=== PATIENT | female | born 1970 | race Caucasian/White ===

== ENCOUNTER 2020-12-27 08:00 | Outpatient (RCR) | payer MEDICARE, MEDICAID, SELFPAY ==
[2020-12-12 13:36] VITALS: BMI 20.9
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
--- NOTE | 2020-12-13 11:03 | PC.ADMIT ---
Patient self referred to PHP d/t increase in mood dysregulation. Patient has attended PHP in the past and has found it helpful. She reports depression with passive SI, no plan or intent, and an increase in anxiety symptoms. Patient is diagnosed with Bipolar II d/o and is currently depressed. Reports symptoms of de-realization and de-personalization for the past few months. She is continuing to struggle with complex grief regarding the loss of her mother who in May who patient described was her best friend and grieving the loss of her past best friend who went missing in 2015 who suffered from a psychotic disorder. Patient reports she is in medical distress related to Chronic Fatigue Syndrome and is mostly home bound at this time. Patient reports history of 15 inpatient LOC hospitalizations and is attending PHP at this time as she does not want to go inpatient. Patient has a history of paranoid episodes however does not present with this at present. Patient mentioned many support services including her therapist, outreach [facility] worker, [facility] worker, and practice clinician. Patient also reports supports from relatives and friends who have been helping her with food however patient reports she has a difficult time reaching out to them because of her depressed state. She also stated KITCHEN WORK SUPERVISOR drops off food boxes at her door. Patient reports she has been ordering off of [employer] at times but is having some financial issues as a result. Patient reports she lost her home service director d/t the pandemic and is in the process of obtaining another. In addition, patient reports she had an appointment in May 2020 for a nuclear stress test as she has episodes of chest pain and tachycardia. Patient did not follow through d/t the pandemic and does not want staffs help in rescheduling the appointment at this time as she is feeling too depressed and fatigued. Patient plans on rescheduling the appointment when she is more stable mentally. Patient is alert and oriented x4. Calm and cooperative. Denied SI at present however stated she has SI a lot and has passive thoughts of feeling tired of fighting, living. Patient denied plan or intent. Asked who she could contact if feeling unsafe and she stated Crisis, Therapist, Outreach provider from [facility], rn clinician or [facility] clinician. Emailed patient a copy of her safety plan if needed. Patients medications reconciled with patient and patient's pharmacy. Awaiting medication information from patient prescriber Dr Nicholas Cancino to completely reconcile medication list.
--- NOTE | 2020-12-14 12:32 | PC.NURSE ---
Case opened in treatment team
--- NOTE | 2020-12-15 11:15 | PC.NURSE ---
I called and spoke to pt, as they were struggling and tearful in group. Pt was very tearful, sobbing, and reported feeling triggered by the thought of planning for the weekend in the context of her mental and physical struggles. Pt spoke about not knowing what they will be able to accomplish physically, and struggling to think how to plan. (Pt was in the weekend planning group). We discussed reframing weekend goals in terms of coping, and pt set a goal to pace self and practice mindfulness rather than creating a list of tasks. Pt was less tearful and reported being safe and having no SI. Pt spoke about how their lost friend would want them to self care, and spoke about plans to sit outside with a neighborhood cat until the next group.
--- NOTE | 2020-12-19 13:07 | P.PNPSP_ITS ---
Subjective Subjective Date of Service: 12/19/20 Reason For Visit: Bipolar Subjective Notes: Yi Warning Healthcare Proxy: No Guardianship: No Medical Problems Affecting Mental Status: Yes Interim History: Tony is a 50 y.o. female who carries a dx of bipolar disorder, mixed state with psychotic features. She self referred to [facility] due to sx of depression and bereavement. Precipitating factors include her mom in 05/2020. She has co-morbid medical issues including a dx of chronic fatigue syndrome, migraines. She has [facility] services and outreach. She has OP treatment through [facility], prescriber is Dr. Nicholas Cancino. On intake, she reported positive benefit on her OP med regimen and did not want changes to be made. I evaluated the patient this morning and upon interview she reports PHP has been helpful, I feel like its going quite well. Says she typically takes thorazine 25 mg or klonopin 2 mg PRN 3 times a month due to adrenaline mixed episodes that are dangerous when I'm triggered and not in a good place. Says she can discern whether she will benefit from klonopin or thorazine depending on the flavor of the episode. Reports both medications are helpful but she does not like the sedating effects of thorazine, as she will feel unable to function for a day and a half after taking it. At baseline, she reports her energy is low and she is often in bed but she does not feel sleep is restful. She denies having issues with hyposomnia even during agitated mood episodes. Says she does not want to be on such a sedating medication as thorazine and asks about trialing risperdal PRN for breakthrough agitation and symptoms of loreta/ hypomania. Discussed risks and benefits of risperdal including potential for increased prolactin and wt gain- I agree this is a reasonable choice to address her symptoms of mood instability and agitation. She has trialed multiple medications in the past but denies having been on risperdal. Today she reports feeling safe, denies SI/SIB/HI upon inquiry. She currently denies sx of loreta/ hypomania. Denies psychotic sx. No hx of seizures. Denies hx of arrhythmia, has hx of tachycardia. Medication Compliance: Yes Side effects from medications: Yes Attending Groups: Yes Review of Systems Acute medical concerns: No Medical Review of Systems: unchanged Review of Systems: CVS: No c/o chest pain, palpitations, no SOB MINT MACHINE OPERATOR: No c/o dizziness, headache GI: No c/o Nausea, Vomiting, diarrhea, constipation or heartburn Mental Status Exam Mental Status Exam Narrative: A&O. Well groomed, lying down with head on pillow. Good eye contact, attentive. No Tics or Tremors. No abnormal involuntary movements. Calm, cooperative, engaged. Non-pressured speech, spontaneous with regular rate and rhythm, normal volume and prosody. No prolonged speech latency or dysarthria. Mood is ?better,? affect is euthymic. Denies SI/SIB/HI upon inquiry. Denies A/VH or delusional thought content. Thoughts are coherent, organized. No known cognitive or memory impairment. Insight/ Judgment fair and adequate. Diagnostics Vital Signs (24Hr): Body Mass Index 20.9 Assessment & Plan Assessment & Plan (1) Bipolar 2 disorder, major depressive episode: Status: Acute Code(s): F31.81 - Bipolar II disorder Assessment and Plan: Valentina is a 50 y.o. female who carries a dx of bipolar disorder, mixed state with psychotic features. She self referred to [facility] due to sx of depression and bereavement. She has co-morbid chronic fatigue syndrome. She has OP services, DM, has been med adherent. No substance use concerns. Plan: 1. Continue current OP medication regimen, including remeron 45 mg, trazodone 50 mg, gabapentin 400 mg TID, 100 mg PRN, klonopin 0.5 mg TID, and klonopin 2 mg PRN (does not often use, for breakthrough manic/ hypomanic episodes). 2. Discontinue thorazine 25 mg QD PRN for breakthrough manic/ hypomanic episodes. Start risperdal 2 mg, may take 1/2-1 tablet QD PRN for agitated/ mixed mood episodes. Reviewed risks and benefits, says she may only need it 3 times a month. 3. Continue with OP services upon discharge. Monitor response to medications. Discharge on stabilization. Patient seen. Chart reviewed. Patient educated on: medication risk/benefits Reason for contiued partial hosp. stay Substantial Risk for: med/psych decompensation Certification I certify that partial hospital treatment is medically necessary due to the symptoms and problems resulting from the patient's mental illness and the failure to treat the patient at the partial hospital level of care would likely result in the patient requiring inpatient psychiatric care which could not be prevented at a less intensive level of care. Greater than 50% of the session was spent on counseling and/or coordination of care Discharge Plan Discharge Attending provider: Alex Paredes Medications: New risperidone [Risperdal] 2 mg tablet 2 mg PO DAILY PRN (Reason: agitation) 14 Days Qty: 14 RF: 0 No Action trazodone 50 mg Tablet 50 mg PO BEDTIME RF: 0 gabapentin 400 mg Capsule 400 mg PO TID RF: 0 mirtazapine 45 mg Tablet 45 mg PO BEDTIME RF: 0 gabapentin 100 mg Capsule 100 mg PO TID PRN (Reason: Mild anxiety) RF: 0 clonazepam [Klonopin] 0.5 mg Tablet 0.5 mg PO TID RF: 0 estradiol 0.5 mg Tablet 0.5 mg PO TID RF: 0 chlorpromazine [Thorazine] 50 mg Tablet 50 mg PO DAILY PRN (Reason: Anxiety) RF: 0 clonazepam [Klonopin] 2 mg Tablet,Disintegrating 2 mg PO DAILY PRN (Reason: bipolar mixed episodes) RF: 0 tizanidine 2 mg Capsule 2 mg PO Q8H PRN (Reason: Muscle Spasm) RF: 0 levothyroxine 100 mcg Capsule 100 mcg PO DAILY RF: 0
--- NOTE | 2020-12-27 13:52 | PC.NURSE ---
Patient scheduled to discharge from the program today. Reviewed patients medications with patient. Patient reports taking medications as prescribed. Denied SI, feels safe today and feeling ready for discharge. Reports she feels good about discharging today.
--- NOTE | 2020-12-27 17:27 | P.PNPSP_ITS ---
Subjective Subjective Date of Service: 12/27/20 Reason For Visit: Bipolar Subjective Notes: Yi Warning Guardianship: No Medical Problems Affecting Mental Status: No Interim History: Tony reports that she feels that she is ready to complete program today. She denies any thoughts of self-harm or suicidal ideation. She reports that she has p.r.n. Risperdal available for when she is in crisis, but states that she has not needed to use it yet. She reports that she feels she has gotten a lot out of this program, and feels more emotionally stable at this time. Medication Compliance: Yes Side effects from medications: No Attending Groups: Yes Review of Systems Acute medical concerns: No Medical Review of Systems: unchanged Mental Status Exam Mental Status Exam Narrative: Well-developed, well-nourished female, in no apparent distress. Alert and oriented x4. Well groomed, appropriately dressed. Eye contact within normal limits. No involuntary movements noted, motor activity calm, posture leaning up on pillow on side due to chronic fatigue syndrome. Manner and behavior was calm, cooperative. Speech was fluent, unimpaired. Mood and affect were stable, no constriction or lability noted. Patient expressed hope for the future. Thought process and associations was linear, goal-directed. Thought content was normal, future oriented. Denies any type of hallucinations or delusions, did not appear to be responding to internal stimuli in any way. Denies any type of SI. Denies HI. Appears to be a reliable brand analyst. Judgment and insight appear intact at this time. Ambulation not observed. Patient Appearance: Well Grooomed and Fatigued Diagnostics Vital Signs (24Hr): Body Mass Index 20.9 Assessment & Plan Assessment & Plan (1) Bipolar 2 disorder, major depressive episode: Status: Acute Code(s): F31.81 - Bipolar II disorder Assessment and Plan: Patient reports improved mood. Does not require any type of medication refills at this time. Reports that she has her p.r.n. Risperdal available for when she feels she is in crisis. She reports she feels stable for discharge at this time. Denies any type of thoughts of harm to self or others, no safety concerns at this time. Assessment and Plan: Patient appears stable for discharge from [facility] today. Plan is to follow up with her outpatient providers going forward. Patient educated on: diagnosis, medication risk/benefits and therapeutic s trategies Informed Consent: understands Reason for contiued partial hosp. stay Substantial Risk for: stable for discharge Certification I certify that partial hospital treatment is medically necessary due to the symptoms and problems resulting from the patient's mental illness and the justin lure to treat the patient at the partial hospital level of care would likely result in the patient requiring inpatient psychiatric care which could not be prevented at a less intensive level of care. Greater than 50% of the session was spent on counseling and/or coordination of care Discharge Plan Discharge Attending provider: Alex Paredes Medications: New risperidone [Risperdal] 2 mg tablet 2 mg PO DAILY PRN (Reason: agitation) 14 Days Qty: 14 RF: 0 No Action trazodone 50 mg Tablet 50 mg PO BEDTIME RF: 0 gabapentin 400 mg Capsule 400 mg PO TID RF: 0 mirtazapine 45 mg Tablet 45 mg PO BEDTIME RF: 0 gabapentin 100 mg Capsule 100 mg PO TID PRN (Reason: Mild anxiety) RF: 0 clonazepam [Klonopin] 0.5 mg Tablet 0.5 mg PO TID RF: 0 estradiol 0.5 mg Tablet 0.5 mg PO TID RF: 0 chlorpromazine [Thorazine] 50 mg Tablet 50 mg PO DAILY PRN (Reason: Anxiety) RF: 0 clonazepam [Klonopin] 2 mg Tablet,Disintegrating 2 mg PO DAILY PRN (Reason: bipolar mixed episodes) RF: 0 tizanidine 2 mg Capsule 2 mg PO Q8H PRN (Reason: Muscle Spasm) RF: 0 levothyroxine 100 mcg Capsule 100 mcg PO DAILY RF: 0 Stand Alone Forms: Patient Portal Discharge page Telehealth Telehealth Location of provider rendering services: practice address Location of patient: address on file Patient Identification confirmed using: Name, : Yes Telehealth method: video Patient verbally consented to treatment: Yes Patient verbally consented to billing insurance company: Yes Patient informed of any privacy concerns related to visit: Yes Time spent with patient (mins): 15
== END 2020-12-28 08:07 | disposition home or self-care (01) ==
LOC: HO.PHPA 08:00
PROVIDERS: Visit Provider Psychiatry & Neurology Psychiatry
DX: F31.81 Bipolar II disorder (principal); Z79.899 Other long term (current) drug therapy
CPT/HCPCS: 90853